=== PATIENT | female | born 1985 ===

== ENCOUNTER 2017-06-10 17:35 | Emergency (ER) | payer BC, OTHER ==
[2017-06-10 18:04] VITALS: BP 114/72; PULSE 83; RESP 18; TEMP 98.9; O2SAT 100
--- NOTE | 2017-06-10 18:49 | ED PDOC ---
HPI: Psych/Substance Abuse Time Seen by Provider: 06/10/17 18:19 Chief Complaint (Nursing): Psychiatric Evaluation Chief Complaint (Provider): Psychiatric evaluation History Per: Patient History/Exam Limitations: no limitations Onset/Duration Of Symptoms: Other (weeks) Additional Complaint(s): Patient is a 31 y/o female with no significant past medical history sent by her therapist to the emergency department for depression ongoing for several weeks. Reports that she has been unable to get out of bed. Admits to suicidal ideation in the past but denies any suicidal attempts. Denies any other complaints. PCP: none provided. Past Medical History Reviewed: Historical Data, Nursing Documentation, Vital Signs Vital Signs: Last Vital Signs Temp 98.9 F 06/10/17 18:02 Pulse 83 06/10/17 18:02 Resp 18 06/10/17 18:02 BP 114/72 06/10/17 18:02 Pulse Ox 100 06/10/17 18:02 - Medical History PMH: Anxiety, Post Traumatic Stress Disorder - Family History Family History: States: Unknown Family Hx - Immunization History Hx Tetanus Toxoid Vaccination: No Hx Influenza Vaccination: No Hx Pneumococcal Vaccination: No - Home Medications Home Medications: Ambulatory Orders Medication Instructions Recorded Amoxicillin 500 mg PO Q8 #21 tab 07/30/14 Ibuprofen 600 mg PO Q8 #30 tab 07/30/14 Pseudoephedrine Hydrochlorid 120 mg PO BID #10 ter 07/30/14 [Sudafed 12 Hour] - Allergies Allergies/Adverse Reactions: Allergies Allergy/AdvReac Type Severity Reaction Status Date / Time No Known Allergies Allergy Verified 07/30/14 09:38 Review of Systems ROS Statement: Except As Marked, All Systems Reviewed And Found Negative Psych: Positive for: Depression, Suicidal ideation (past) Physical Exam - Reviewed Nursing Documentation Reviewed: Yes Vital Signs Reviewed: Yes - Physical Exam Appears: Positive for: No Acute Distress Head Exam: Positive for: ATRAUMATIC, NORMAL INSPECTION, NORMOCEPHALIC Skin: Positive for: Normal Color, Warm, Dry Eye Exam: Positive for: Normal appearance Neck: Positive for: Normal Cardiovascular/Chest: Positive for: Regular Rate, Rhythm Respiratory: Negative for: Accessory Muscle Use, Respiratory Distress Extremity: Positive for: Normal ROM Neurologic/Psych: Positive for: Alert, Oriented (x3), Mood/Affect (flat) - ECG O2 Sat by Pulse Oximetry: 100 (RA) Pulse Ox Interpretation: Normal Medical Decision Making Medical Decision Makin:30 Initial Impression: Depression Crisis evaluation pending. Scribe Attestation: Documented by Evangelina Webb, acting as a scribe for Lucila Leavitt MD. Provider Scribe Attestation: All medical record entries made by the Scribe were at my direction and personally dictated by me. I have reviewed the chart and agree that the record accurately reflects my personal performance of the history, physical exam, medical decision making, and the department course for this patient. I have also personally directed, reviewed, and agree with the discharge instructions and disposition. Disposition - Clinical Impression Clinical Impression: Depression - Disposition Disposition: Routine/Home Disposition Time: 20:25 Condition: STABLE Additional Instructions: FOLLOW-UP ADVISED. Instructions: Depression (ED) Forms: [facility] ([place]ian)
== END 2017-06-10 21:30 | disposition home or self-care (01) ==
LOC: H.ER 17:35
DX: F32.9 Major depressive disorder, single episode, unspecified (principal); F43.10 Post-traumatic stress disorder, unspecified